=== PATIENT | male | born 1955 ===

== ENCOUNTER 2021-08-16 12:39 | Emergency (ER) | payer BC ==
[2021-08-16] MEDS ORDERED: IV FLUID CONTINUATION 1,000 ML IV ONE (12:48)
[2021-08-16] MEDS ORDERED: fentaNYL (PF) 50 MCG/ML 2 ML AMP ONE (12:57)
[2021-08-16] MEDS ORDERED: HEPARIN SODIUM 1,000 UN/ML (10ML VL) ONE (13:00)
[2021-08-16] MEDS ORDERED: LIDOCAINE 1% INJ 10MG/ML (5 ML VIAL-PF) SQ ONE (13:02)
[2021-08-16] MEDS ORDERED: fentaNYL (PF) 50 MCG/ML 2 ML AMP IV ONE (13:03)
[2021-08-16] MEDS ORDERED: MIDAZOLAM 2 MG/2 ML VIAL IV ONE (13:03)
--- NOTE | 2021-08-16 13:04 | P.CRDCN ---
History of Present Illness History of present illness: This is Dr. Joe dictating a consult on this patient The patient was interviewed and examined IMPRESSION / ASSESSMENT: Abnormal EKG with ST depression in the inferior leads, lateral precordial leads, ST elevation in aVR and V1 and V2 Recurrent chest discomfort yesterday, pain-free today Abnormal cardiac enzymes Type 2 diabetes for 7-8 years PLAN: Proceed with coronary angiography and intervention based on the results Admit to internal medicine HPI This is a 66-year-old male patient who was experiencing recurrent chest discomfort yesterday and so he came to the ER at [facility] His first EKG around 8:30 in the morning was abnormal His subsequent EKG was also abnormal It should ST elevation in aVR and V1 and V2 and ST depression in the precordial leads as well as the inferior leads Repeat EKG was performed which showed the exact same abnormalities First troponin was abnormal The second troponin was further abnormal Currently was called close to noon time after the troponins received I received a call from the nurse practitioner I the patient transferred over to [facility] directly to the Contract Management Specialist Patient Was Examined in the Contract Management Specialist ROS: No fever chills or rigors, no cough, phlegm or expectoration, no nausea, vomiting or diarrhea, no hematuria, dysuria, no musculoskeletal complaints, no strokes or seizures, no skin lesions. EXAMINATION: Resting comfortably in bed no orthopnea No JVD No lower extremity edema Normal heart sounds no murmurs Clear lungs to rhonchi no crackles REVIEW OF LABS, ECG & MEDICAL DATA Abnormal EKG Abnormal troponins Elevated glucose levels Bicarb 20 anion gap 13
[2021-08-16] MEDS ORDERED: VERAPAMIL SYRINGE (5 MG/10 ML) INTRAARTER ONE (13:06)
[2021-08-16] MEDS ORDERED: HEPARIN SODIUM 1,000 UN/ML (10ML VL) IV ONE (13:09)
[2021-08-16 13:32] LABS: Glucose,Whole Blood 385 mg/dL (70-110)
[2021-08-16] MEDS ORDERED: IOPAMIDOL-370 125ML BTL INJ ONE (13:37)
== END 2021-08-17 05:42 | disposition other institution (70) ==
LOC: EC 12:39
DX: I20.9 Angina pectoris, unspecified (principal); Z53.8 Procedure and treatment not carried out for other reasons
CPT/HCPCS: C1769; C1894

== ENCOUNTER 2021-08-16 13:42 | Inpatient (IN) | payer BC, MEDICARE ==
[~2021-08-16 13:42] MED LIST: HEPARIN SODIUM 1,000 UN/ML (10ML VL) IV ONE; IOPAMIDOL-370 125ML BTL INJ ONE; IV FLUID CONTINUATION 1,000 ML IV ONE; LIDOCAINE 1% INJ 10MG/ML (5 ML VIAL-PF) SQ ONE; MIDAZOLAM 2 MG/2 ML VIAL IV ONE; VERAPAMIL SYRINGE (5 MG/10 ML) INTRAARTER ONE; fentaNYL (PF) 50 MCG/ML 2 ML AMP IV ONE
[2021-08-16 14:54] LABS: HCT 41.5 % (39.0-53.0); MCH 30.4 pg (25.0-35.0); MCHC 33.6 g/dL (31.0-37.0); MCV 90.4 fL (80.0-100.0); Mean Platelet Volume 8.1; Platelet Count 157 k/uL (150-450); RDW 13.7 % (11.5-15.5); WBC 7.6 k/uL (3.8-10.6)
[2021-08-16 14:58] LABS: INR 1.8 (<1.2); Prothrombin Time 18.3 sec (9.0-12.0)
[2021-08-16] MEDS ORDERED: SODIUM CHLORIDE 0.9% 1,000 ML IV ONE (15:21)
[2021-08-16] MEDS ORDERED: NALOXONE 0.4 MG/ML 1 ML VIAL IV PRN (15:30)
[2021-08-16] MEDS ORDERED: bisacodyL 5 MG TABLET.DR PO PRN (15:31)
[2021-08-16] MEDS ORDERED: MELATONIN 3 MG TABLET PO PRN (15:31)
[2021-08-16] MEDS ORDERED: ACETAMINOPHEN TAB 325 MG TAB PO PRN (15:31)
[2021-08-16] MEDS ORDERED: ONDANSETRON 4 MG/2 ML VIAL IVP PRN (15:31)
--- NOTE | 2021-08-16 15:52 | P.HPIM ---
History of Present Illness H&P Date: 08/16/21 Chief Complaint: chest pain Patient is a 66-year-old male with known past medical history of diabetes mellitus type 2 on insulin and brittle, chronic diastolic congestive heart failure, hypertension, dyslipidemia, paroxysmal A. fib with sick sinus syndrome status post pacemaker, and GERD who was brought in via EMS to [facility] after being found at a gas station confused and with some chest pain. Initially on arrival there he was found to have some ST segment elevation and a code STEMI was activated. He also had a mildly elevated troponin. He was taken emergently from there to the flue dust laborer here where he underwent cardiac catheterization, there was no significant lesions found and patient did not require intervention. Laboratory analysis from [facility] was reviewed and patient had a significantly elevated blood sugar of greater than 700 with sodium of 125 on arrival. He had a CT of the head which demonstrated no acute hemorrh age or midline shift with mild diffuse ventricular and sulcal prominence and complete opacification of the right maxillary sinus. He was noted to be confused and lethargic after cardiac catheterization. We were asked to admit the patient for his metabolic derangements. Patient seen and examined at bedside and extended stay with daughter present. Patient works and lives in [place]. Apparently the patient was at his work shift last night and then the daughter received a phone call this morning that he was found in [place] from the [facility] police. She tells me that he has a history of brittle diabetes but his highest blood sugars are typically in the 200s now and he more often has low blood sugars and high blood sugars. He has no prior history of heart attack or stroke. She believes he was in his typical state of health until yesterday. She stated is very unusual for him to have driven the scar. Patient is lethargic but does awake to physical stimulation. He is able to tell me that he has in a hospital, that he came via EMS, that he was in his cardiac gas station prior. He is unable to tell me how he arrived at the gas station. He also is unable to recall the year. His speech does appear somewhat garbled. Initially daughter was worried that he had a little left-sided facial droop but she thinks it is maybe just dehydration at this point. Unable to complete a full review of systems secondary to patient's lethargy. Vital signs reviewed General: nontoxic, no distress, appears at stated age Derm: warm, dry Head: atraumatic, normocephalic, symmetric Eyes: EOMI, no lid lag, anicteric sclera, pupils equal round reactive to light ENT: Nose and ears atraumatic, no thrush, no pharyngeal erythema Neck: No thyromegaly, no cervical lymphadenopathy, trachea midline, supple Mouth: no lip lesion, mucus membranes dry Cardiovascular: S1S2 reg, no murmur, positive posterior tibial pulse bilateral, no edema, capillary refill less than 2 seconds Lungs: clear to auscultation bilateral, no rhonchi, no rales, no wheeze, no accessory muscle use Abdominal: soft, nontender to palpation, no guarding, no appreciable organomegaly, normal bowel sounds Ext: no gross muscle atrophy, muscle strength muscle strength 5 out of 5 in all 4 extremities, no contractures Neuro: CN II-XII grossly intact, light touch intact all 4 extremities Psych: Alert, oriented to person and being in a hospital but not year Assessment/Plan: Acute encephalopathy - concern is for metabolic encephalopthy vs stroke, vs seizure -Treatment of underlying metabolic drainage insulin-check stat ammonia level -Computed tomography scan from this morning was negative -Consult neurology- D/W Dr. Lama plan is for EEG and repeat CT in AM Type II WI - cardio recs - resume home medications Symptomatic hyperglycemia in an insulin-dependent diabetic Pseudohyponatremia, corrects to normal. -Recheck stat blood work -Rule out DKA with stat lytes and acetone - repeat stat lytes, ammonia Compensated diastolic congestive heart failure HTN HLD P A fib, SSS, s/p PPM -Last echo reported showed ejection fraction of 55-60% with mild concentric LVH - Appears that patient was taking aspirin 81 mg at home, atorvastatin, metoprolol will await home meds to be reviewed GERD - Awaiting home medications to be verified. Anticipated length of stay of less than 2 minutes for acute encephalopathy and hyperglycemia DVT prophylaxis: SCDs Discussed with: Patient, nursing Anticipated discharge: in 1-[address]: home A total of 75 minutes was spent on the care of this complex patient more than 50% of the time was spent in counseling and care coordination. Past Medical History Past Medical History: Atrial Fibrillation, Heart Failure, Diabetes Mellitus, Hyperlipidemia, Hypertension Additional Past Medical History / Comment(s): Refles sympathetic dystrophy, sick sinus syndrome, non-ischemic cardiomyopathy Past Surgical History: Pacemaker Additional Past Surgical History / Comment(s): Heart ablation, pacemaker inser tion and replacement Smoking Status: Unknown if ever smoked Past Alcohol Use History: Occasional Past Drug Use History: None Reported Additional History: Works in [employer] in [place]. - Past Family History Mother Family Medical History: Cancer Father Family Medical History: Cancer Brother(s) Family Medical History: Diabetes Mellitus Medications and Allergies Home Medications Medication Instructions Recorded Confirmed Type Atorvastatin Calcium [Lipitor] 40 mg PO DAILY 08/16/21 08/16/21 History Finasteride [Proscar] 5 mg PO DAILY 08/16/21 08/16/21 History Insulin Detemir [Levemir Flextouch 9 units SQ HS 08/16/21 08/16/21 History Pen] Insulin Detemir [Levemir Flextouch 26 units SQ DAILY 08/16/21 08/16/21 History Pen] Metoprolol Succinate (ER) [Toprol 25 mg PO BID 08/16/21 08/16/21 History Xl] Omeprazole 40 mg PO DAILY 08/16/21 08/16/21 History Propafenone HCl [Propafenone HCl 325 mg PO BID 08/16/21 08/16/21 History ER] Sertraline [Zoloft] 100 mg PO DAILY 08/16/21 08/16/21 History Tamsulosin [Flomax] 0.4 mg PO DAILY 08/16/21 08/16/21 History Warfarin [Coumadin] 4 mg PO DAILY 08/16/21 08/16/21 History Allergies Allergy/AdvReac Type Severity Reaction Status Date / Time No Known Allergies Allergy Verified 08/16/21 16:26 Physical Exam Osteopathic Statement: *. No significant issues noted on an osteopathic structural exam other than those noted in the History and Physical/Consult. Vitals: Vital Signs Pulse Resp BP Pulse Ox 08/16/21 13:51 68 16 159/74 99 Intake and Output 08/16/21 08/16/21 08/16/21 06:59 14:59 22:59 Intake Total 300 Balance 300 Intake: IV 300 Other: Weight 82.953 kg Results CBC & Chem 7: 08/16/21 14:44 08/16/21 16:13 Labs: Abnormal Lab Results - Last 24 Hours (Table) 08/16/21 Range/Units 14:44 PT 18.3 H (9.0-12.0) sec INR 1.8 H (<1.2)
[2021-08-16 15:53] LABS: ABG Base Excess -3.6 mmol/L; ABG HCO3 23 mmol/L (21-25); ABG Oxygen Saturation 93.4 % (94-97); ABG PCO2 45 mmHg (35-45); ABG PH 7.31 (7.35-7.45); ABG PO2 76 mmHg (83-108); ABG TCO2 24 mmol/L (19-24); Allen Test Performed? Yes
[2021-08-16 16:44] LABS: ALT 25 U/L (4-49); African American GFR (CKD) >90 (>60 ml/min/1.73 sqM); Albumin 3.6 g/dL (3.5-5.0); Anion Gap 8 mmol/L; Blood Urea Nitrogen 24 mg/dL (9-20); Calcium 8.4 mg/dL (8.4-10.2); Carbon Dioxide 22 mmol/L (22-30); Chloride 108 mmol/L (98-107); Glucose 375 mg/dL (74-99); Non-African American GFR(CKD) >90 (>60 ml/min/1.73 sqM); Phosphorus 3.4 mg/dL (2.5-4.5); Sodium 138 mmol/L (137-145); Total Bilirubin 0.7 mg/dL (0.2-1.3); Total Protein 5.9 g/dL (6.3-8.2)
[2021-08-16 16:46] LABS: AST 28 U/L (17-59); Alkaline Phosphatase 90 U/L (38-126); Magnesium 2.2 mg/dL (1.6-2.3); Potassium 4.3 mmol/L (3.5-5.1)
[2021-08-16 16:58] LABS: Glucose,Whole Blood 369 mg/dL (70-110)
--- NOTE | 2021-08-16 17:07 | P.CNNES ---
History of Present Illness Consult date: 08/16/21 Requesting physician: Omayra Martines Reason for Consult: concern for CVA History of Present Illness: This is a 66-year-old gentleman with history of atrial fibrillation on Coumadin, sick sinus syndrome s/p pacemaker, diabetes mellitus type 2 and is britlle, chronic diastolic heart failure, hypertension, dyslipidemia who was transferred transferred from [facility] for escalation of care for elevate troponin and concern initially for STEMI. Some of the history is obtained from the patient's primary attending. It seems that the patient was found at a gas station confused with some chest pain and was taken to [facility] and was found to have elevated troponin. His a initial blood sugar was >700s. It seems his baseline sugar runs in the 200s at home. Also was found that his sodium of 125. He had initial CT of the head at the outside facility which was reported as no acute hemorrhage or midline shift with mild diffuse ventricular and sulcal prominence and complete opacification of the right maxillary sinus. He was transferred to [facility] since there was a concern on EKG the patient has ST elevation ID and was transferred for cardiac cath. It seems that the patient had a cardiac cath in our facility. Seems his sugar in our facility was in the 300. In our facility patient underwent cardiac cath with no significant lesions found and the patient did not require intervention. It seems that the patient works and lives in [place] and works at night. Then it apparently the daughter received a call from state police that the patient was in [place]. Seems his sugars are not control at home and as stated earlier it's and usually 200 but can be lower. Patient does not have any history of stroke in the past. His daughter initially thought he had little left facial droop. It seems that his speech was somewhat garbled. Per the daughter he was in his typical state of health until likely yesterday and she felt was unusual for him to drive this far. Some other workup in our facility consisted of: Initial vital signs is a blood pressure of 159/74, heart rate of 68, respiratory of 16 and pulse ox of 99 at room air. CBC was unremarkable Ammonia level is less than 9 Review of Systems Review of system is limited but the prone positive and negative as per HPI. Past Medical History - Past Family History Mother Family Medical History: Cancer Father Family Medical History: Cancer Brother(s) Family Medical History: Diabetes Mellitus Medications and Allergies Home Medications Medication Instructions Recorded Confirmed Type Atorvastatin Calcium [Lipitor] 40 mg PO DAILY 08/16/21 08/16/21 History Finasteride [Proscar] 5 mg PO DAILY 08/16/21 08/16/21 History Insulin Detemir [Levemir Flextouch 9 units SQ HS 08/16/21 08/16/21 History Pen] Insulin Detemir [Levemir Flextouch 26 units SQ DAILY 08/16/21 08/16/21 History Pen] Metoprolol Succinate (ER) [Toprol 25 mg PO BID 08/16/21 08/16/21 History Xl] Omeprazole 40 mg PO DAILY 08/16/21 08/16/21 History Propafenone HCl [Propafenone HCl 325 mg PO BID 08/16/21 08/16/21 History ER] Sertraline [Zoloft] 100 mg PO DAILY 08/16/21 08/16/21 History Tamsulosin [Flomax] 0.4 mg PO DAILY 08/16/21 08/16/21 History Warfarin [Coumadin] 4 mg PO DAILY 08/16/21 08/16/21 History Allergies Allergy/AdvReac Type Severity Reaction Status Date / Time No Known Allergies Allergy Verified 08/16/21 16:26 Physical Examination - Vital Signs Vital Signs: Vital Signs Pulse Resp BP Pulse Ox 08/16/21 13:51 68 16 159/74 99 Intake and Output 08/16/21 08/16/21 08/16/21 06:59 14:59 22:59 Intake Total 300 Balance 300 Intake: IV 300 Other: Weight 82.953 kg GENERAL: The patient is lying in bed and is not in acute distress. HENT: Supple neck. CHEST: The heart rate is regular rate rhythm. No murmurs to auscultation. LUNG: Clear to auscultation bilaterally no wheezing noted throughout. Not labored breathing. ABDOMEN/GI: Bowel sounds present in all 4 quadrants. No tenderness to palpation throughout. NEUROLOGICAL: Higher mental function: The patient is drowsy but is awakeable to voice. Is oriented to self. He correctly stated he was in the hospital but did not know the name. Correctly stated the Month but did not respond to year. He correctly name objects (pen, watch, glasses). Patient is following simple commands. Does not appear to have aphasia and no neglect. Cranial nerves: The pupils are round, equal and reactive to light. Visual reynolds are full to confrontation throughout. Extraocular movement is intact no nystagmus is noted. Facial sensation is normal to touch throughout. The facial strength is normal throughout. Tongue is midline and moved [id number] without any difficulty. No dysarthria is noted. Shoulder shrug is normal bilaterally. Motor: The strength is 5 over 5 throughout. Normal tone and bulk. Has slight tremors of bilateral hands while resting but is aweakable and responsive during these episodes. Cerebellum: Not assess because of cooperation. Sensation: Sensation is normal to touch throughout. Reflexes (right/left): 2+ throughout. Plantars are mute bilaterally. Results - Laboratory Findings CBC and BMP: 08/16/21 14:44 08/16/21 16:13 Abnormal Lab Findings: Abnormal Labs 08/16/21 14:44 PT 18.3 H INR 1.8 H Assessment and Plan Assessment: Altered mental status seems due to metabolic encephalopathy (initial sugar were >700's at outside facility). Also rule out any underlying seizure or stroke. Patient had an initial CT of the head at outside facility which was unremarkable. Uncontrolled diabetes mellitus type 2 on insulin NSTEMI Atrial fibrillation on Coumadin Sick sinus syndrome s/p pacemaker Chronic diastolic heart failure, Dyslipidemia Plan: I ordered a repeat CT of the head tomorrow 8am. The patient had a CT of the head at outside facility which was unremarkable. Cannot pursue with MRI since the patient has a pacemaker Ordered an urgent EEG which will happen tomorrow Ordered carotid duplex, TSH, vitamin B12, folate. PT, OT and and EDITORIAL CLERK are consulted Continue neuro checks. Cardiology team is also on board We'll defer the rest of the medical management to primary team and nurse. The plan is discussed with the primary team. Thank you for the consultation. Reji Lama M.D. Neuro-hospitalist Time with Patient: Greater than 30
[2021-08-16] MEDS: INSULIN ASPART (NovoLOG) 100 UNIT/ML VIAL SQ SCH ×2 (17:26→20:26)
[2021-08-16] MEDS: SODIUM CHLORIDE 0.9% 1,000 ML IV SCH (18:03)
[2021-08-16] MEDS: METOPROLOL TARTRATE 25 MG TAB PO SCH (20:21)
[2021-08-16] MEDS: INSULIN DETEMIR (LEVEMIR) 100 UNIT/ML SYR SQ SCH ×2 (20:22→20:23)
[2021-08-16] MEDS: PROPAFENONE 225 MG TAB PO SCH (20:22)
[2021-08-16 20:25] LABS: Glucose,Whole Blood 283 mg/dL (70-110)
--- NOTE | 2021-08-16 22:10 | US ---
EXAMINATION TYPE: US carotid duplex BILAT DATE OF EXAM: 08/16/2021 COMPARISON: NONE CLINICAL HISTORY: stroke. patient sleeping, unable to answer questions, possible stroke EXAM MEASUREMENTS: RIGHT: Peak Systolic Velocity (PSV) cm/sec ----- Right CCA: 71.2 ----- Right ICA: 89.4 ----- Right ECA: 117.0 ICA/CCA ratio: 1.2 RIGHT: End Diastole cm/sec ----- Right CCA: 12.6 ----- Right ICA: 18.5 ----- Right ECA: 13.8 LEFT: Peak Systolic Velocity (PSV) cm/sec ----- Left CCA: 87.2 ----- Left ICA: 86.3 ----- Left ECA: 184 ICA/CCA ratio: 1.0 LEFT: End Diastole cm/sec ----- Left CCA: 14.3 ----- Left ICA: 17.4 ----- Left ECA: 10.7 VERTEBRALS (direction of flow): Right Vertebral: Antegrade Left Vertebral: Antegrade Rhythm: Normal Mild heterogeneous plaque at bilateral bulbs with no significant stenosis seen IMPRESSION: There is antegrade flow in the vertebral arteries. Minimal plaque formation at the carotid artery bif urcations. Images and measurement suggests less than 15% stenosis in both internal carotid arteries. Criteria for Assigning % of Stenosis / Diameter reduction (Estimation based on the indirect measurements of the internal carotid artery velocities (ICA PSV). 1. Normal (no stenosis)=ICA PSV < 125 cm/s: ratio < 2.0: ICA EDV<40 cm/s. 2. Less than 50% stenosis=ICA PSV < 125 cm/s: ratio < 2.0: ICA EDV<40 cm/s. 3. 50 to 69% stenosis=ICA PSV of 125 to 230 cm/s: ration 2.0 ? 4.0: ICA EDV 40-100 cm/s. 4. Greater than 70% stenosis to near occlusion= ICA PSV > 230 cm/s: ratio > 4.0: ICA EDV > 100 cm/s. 5. Near occlusion= ICA PSV velocities may be low or undetectable: variable ratio and ICA EDV. 6. Total occlusion=unable to detect flow.
--- NOTE | 2021-08-17 00:32 | P.CARDCATH ---
Date of Procedure: 08/16/21 Description of Procedure: PROCEDURES PERFORMED: Left heart catheterization, bilateral coronary angiography, left ventriculogram INDICATION: NSTEMI HPI: Patient is a pleasant 66 yo male who came to [facility] and was confused and found to have DKA. He also had abnormal EKG and NSTEMI with elevating troponins. He was not having active chest pain however had been complaining of prior chest pain and somewhat difficult to get full history secondary to confusion. Therefore, decision was made to transfer to [facility] for LHC and possibly PCI. PROCEDURE: After the risks, benefits and alternatives of the above mentioned procedure explained in detail with the patient, informed consent was obtained. Patient was taken to the catheterization lab and prepped and draped in usual fashion. 1% lidocaine was used to anesthetize the right radial artery. A 6- Nicaraguan sheath was placed in the right radial artery using modified Seldinger technique. RCA angiography was performed with a 5FR FR 5. Left coronary angiography was performed with a 5-Nicaraguan JL 3.5 catheter. A 5-Nicaraguan pigtail catheter was inserted into the left ventricle and pressure measurements were obtained. A right ventriculogram was performed in the MACDONALD projection with power injection. The right radial sheath was removed and a TR band was placed with hemostasis achieved. The patient tolerated the procedure well. Patient was transported back to the post catheterization holding area in stable condition. Conscious Sedation: Patient was monitored under the direct supervision of vision of myself for conscious sedation using Versed and fentanyl for a total duration of 25 minutes HEMODYNAMICS: Aortic: 113/69 LV: 98/3 LVEDP 7 SELECTIVE CORONARY ARTERIOGRAPHY: LEFT MAIN: The left main is a large caliber vessel which bifurcates into the LAD and circumflex. There is no significant stenosis. LEFT ANTERIOR DESCENDING CORONARY ARTERY: LAD is a large caliber vessel which wraps around to the apex. There is no significant stenosis. There is a very small caliber "high diagonal" 1 branch which is nearly a ramus however has no significant stenosis. LEFT CIRCUMFLEX CORONARY ARTERY: Left circumflex is a moderate caliber vessel with no significant stenosis. RIGHT CORONARY ARTERY: The right coronary artery is a large caliber vessel which gives off a PDA and PLV branch and is the dominant vessel. There is no significant stenosis. LV gram: EF 55% without wall motion abnormalities. No MR. FINAL IMPRESSION: 1. Normal coronary arteries as described above. 2. Low normal left sided filling pressures 3. Normal LV EF 55% PLAN: 1. Aggressive risk factor modification per most recent ACC/AHA guidelines. 2. IVF hydration and monitor neuro status.
[2021-08-17 03:33] LABS: Glucose,Whole Blood 163 mg/dL (70-110)
[2021-08-17 06:00] LABS: Glucose,Whole Blood 156 mg/dL (70-110)
[2021-08-17] MEDS: INSULIN ASPART (NovoLOG) 100 UNIT/ML VIAL SQ SCH ×2 (06:17→12:03)
--- NOTE | 2021-08-17 08:20 | CT ---
EXAMINATION TYPE: CT brain wo con DATE OF EXAM: 08/17/2021 COMPARISON: None HISTORY: 66-year-old male weakness, Altered mental status. Rule out stroke. TECHNIQUE: Examination was done in axial plane without intravenous contrast. Coronal and sagittal r econstructions performed. CT DLP: DLP 1126.5 mGycm Automated exposure control for dose reduction was used. FINDINGS: There is no evidence of acute intracranial hemorrhage, acute ischemic changes, mass effect, or extra -axial fluid collection. There is no effacement of cerebral sulci or basal subarachnoid cisterns. T here is no hydrocephalus. There is no midline shift. Kaur-white matter distinction is preserved. There is CSF fullness of the left cerebellopontine angle that may reflect an underlying arachnoid cys t measuring 3.1 x 1.6 cm. Mild generalized supratentorial volume loss. [id number] patchy white matter hypodensities in oriana th cerebral hemispheres and in the 7 similar region on both sides. Leftward nasal septal deviation. Complex opacification right maxillary sinus. Moderate mucosal thicke remi throughout the ethmoid air cells and left maxillary sinus. Mastoid air cells are well pneumatize d. Orbits and globes are intact. IMPRESSION: 1. Mild atrophy and mild to moderate patchy burden of chronic small vessel ischemic disease. No acute intracranial abnormality seen. If symptoms persist, consider MRI. 2. CSF density fullness in the region of the left CPA that may reflect an underlying 3.1 x 1.6 cm yamila chnoid cyst. No significant mass effect or midline shift. 3. Severe chronic right maxillary sinus disease. Moderate chronic sinus disease of the ethmoid air ce lls and left maxillary sinus. Consider outpatient ENT referral.
[2021-08-17] MEDS: SODIUM CHLORIDE 0.9% 1,000 ML IV SCH (08:53)
[2021-08-17] MEDS ORDERED: ATORVASTATIN 40 MG TAB PO SCH (09:00)
[2021-08-17] MEDS ORDERED: INSULIN DETEMIR (LEVEMIR) 100 UNIT/ML SYR SQ SCH ×2 (09:00→21:00)
[2021-08-17] MEDS ORDERED: PANTOPRAZOLE 40 MG TABLET PO SCH (09:00)
[2021-08-17] MEDS ORDERED: FINASTERIDE 5 MG TAB PO SCH (09:00)
[2021-08-17] MEDS ORDERED: SERTRALINE 100 MG TAB PO SCH (09:00)
[2021-08-17] MEDS ORDERED: WARFARIN 2 MG TAB PO SCH (09:00)
[2021-08-17] MEDS ORDERED: TAMSULOSIN 0.4 MG CAP.ER.24H PO SCH (09:00)
[2021-08-17] MEDS: METOPROLOL TARTRATE 25 MG TAB PO SCH (09:04)
[2021-08-17] MEDS: PROPAFENONE 225 MG TAB PO SCH (09:04)
[2021-08-17 09:17] LABS: HCT 40.9 % (39.0-53.0); HGB 13.5 gm/dL (13.0-17.5); MCH 29.9 pg (25.0-35.0); MCHC 33.1 g/dL (31.0-37.0); MCV 90.3 fL (80.0-100.0); Mean Platelet Volume 7.7; Platelet Count 161 k/uL (150-450); RBC 4.53 m/uL (4.30-5.90)
[2021-08-17 09:44] LABS: African American GFR (CKD) >90 (>60 ml/min/1.73 sqM); Anion Gap 5 mmol/L; Blood Urea Nitrogen 17 mg/dL (9-20); Calcium 8.5 mg/dL (8.4-10.2); Carbon Dioxide 25 mmol/L (22-30); Chloride 111 mmol/L (98-107); Glucose 112 mg/dL (74-99); Non-African American GFR(CKD) >90 (>60 ml/min/1.73 sqM); Phosphorus 2.5 mg/dL (2.5-4.5); Sodium 141 mmol/L (137-145)
[2021-08-17 10:09] LABS: INR 1.7 (<1.2); Prothrombin Time 17.5 sec (9.0-12.0)
[2021-08-17 11:35] VITALS: BP 143/75; PULSE 58; RESP 17; TEMP 98.5
[2021-08-17 11:38] LABS: Glucose,Whole Blood 183 mg/dL (70-110)
--- NOTE | 2021-08-17 12:58 | P.PN ---
Subjective This is a 66-year-old male with a past medical history of paroxysmal atrial fibrillation, chronic diastolic heart failure, hyperlipidemia, type 2 diabetes, sick sinus syndrome status post pacemaker implantation, GERD, hypertension, nonischemic cardiomyopathy. He follows with a fur sewer in [place]. Patient presented to [facility] and was confused and found in DKA. Apparently he drove all the way up from [place] confused. Cardiology was consulted there is secondary to abnormal EKG and and 70 with elevated troponins. Patient was not having any active chest pain however was complaining of prior chest pain and somewhat difficult to get full history patient was transferred to [facility] for left heart catheterization and possible PCI. Patient underwent procedure with Dr. Villalobos on 08/17/2021 which revealed Normal coronary arteries. Low normal left sided filling pressures and Normal LV EF 55%. 08/18/2021 Patient seen and examined at bedside, no acute distress. He denies any chest pain or shortness of breath. His mentation has improved. Blood pressure 143/75, heart rate 60, afebrile, saturation 98% room air. Repeat EKG reviewed this morning. GENERAL: Well-appearing, well-nourished and in no acute distress. NECK: Supple without JVD or thyromegaly. LUNGS: Breath sounds clear to auscultation bilaterally. Respiration equal and unlabored. No wheezes, rales or rhonchi. HEART: Regular rate and rhythm without murmurs, rubs or gallops. S1 and S2 heard. EXTREMITIES: Normal range of motion, no edema. No clubbing or cyanosis. Peripheral pulses intact. Right radial cath site, clean, dry, intact, no hematoma. ASSESSMENT Abnormal EKG with ST depression in inferior leads, lateral precordial leads, with ST elevation in aVR V1 and V2 with abnormal cardiac enzymes Normal coronary arteries by cardiac catheterization on 08/17/2021 History of atrial fibrillation on Coumadin Chronic diastolic heart failure Hyperlipidemia Type 2 diabetes History of Sick sinus syndrome status post pacemaker implantation GERD Hypertension History of Nonischemic cardiomyopathy,with improved EF PLAN Continue home cardiac medications Restart coumadin No further changes from cardiology perspective. Recommend close follow up with his fur sewer in [place]. Nurse Practitioner note has been reviewed, I agree with a documented findings and plan of care. Patient was seen and examined. Objective - Vital Signs Vital signs: Vital Signs Temp 98.5 F 08/17/21 11:32 Pulse 58 L 08/17/21 11:32 Resp 17 08/17/21 11:32 BP 143/75 08/17/21 11:32 Pulse Ox 98 08/17/21 11:32 FiO2 Intake & Output 08/16/21 08/17/21 08/17/21 18:59 06:59 18:59 Intake Total 875 Output Total 550 575 Balance 325 -575 Weight 82.953 kg 76.5 kg Intake: IV 300 Intake, IV Titration 325 Amount Sodium Chloride 0.9% 1, 325 000 ml @ 75 mls/hr IV . [id number] [facility] Rx#:[id number] Oral 250 Output: Urine 550 575 Other: Voiding Method Urinal Urinal Bedside Commode Urinal # Voids 1 1 # Bowel Movements 1 1 - Labs CBC & Chem 7: 08/17/21 08:39 08/17/21 08:39 Labs: Abnormal Lab Results - Last 24 Hours (Table) 08/16/21 08/16/21 08/16/21 Range/Units 14:44 15:47 16:13 PT 18.3 H (9.0-12.0) sec INR 1.8 H (<1.2) ABG pH 7.31 L (7.35-7.45) ABG pO2 76 L (83-108) mmHg ABG O2 Saturation 93.4 L (94-97) % Chloride 108 H (98-107) mmol/L BUN 24 H (9-20) mg/dL Glucose 375 H (74-99) mg/dL POC Glucose (mg/dL) (70-110) mg/dL Troponin I (0.000-0.034) ng/mL Total Protein 5.9 L (6.3-8.2) g/dL 08/16/21 08/16/21 08/16/21 Range/Units 16:13 16:56 20:23 PT (9.0-12.0) sec INR (<1.2) ABG pH (7.35-7.45) ABG pO2 (83-108) mmHg ABG O2 Saturation (94-97) % Chloride (98-107) mmol/L BUN (9-20) mg/dL Glucose (74-99) mg/dL POC Glucose (mg/dL) 369 H 283 H (70-110) mg/dL Troponin I 0.808 H* (0.000-0.034) ng/mL Total Protein (6.3-8.2) g/dL 08/17/21 08/17/21 08/17/21 Range/Units 03:29 05:56 08:39 PT (9.0-12.0) sec INR (<1.2) ABG pH (7.35-7.45) ABG pO2 (83-108) mmHg ABG O2 Saturation (94-97) % Chloride 111 H (98-107) mmol/L BUN (9-20) mg/dL Glucose 112 H (74-99) mg/dL POC Glucose (mg/dL) 163 H 156 H (70-110) mg/dL Troponin I (0.000-0.034) ng/mL Total Protein (6.3-8.2) g/dL 08/17/21 08/17/21 Range/Units 09:42 11:35 PT 17.5 H (9.0-12.0) sec INR 1.7 H (<1.2) ABG pH (7.35-7.45) ABG pO2 (83-108) mmHg ABG O2 Saturation (94-97) % Chloride (98-107) mmol/L BUN (9-20) mg/dL Glucose (74-99) mg/dL POC Glucose (mg/dL) 183 H (70-110) mg/dL Troponin I (0.000-0.034) ng/mL Total Protein (6.3-8.2) g/dL
[2021-08-17] MEDS ORDERED: WARFARIN 2 MG TAB PO ONE (13:45)
[2021-08-17 14:33] LABS: Glucose,Whole Blood 299 mg/dL (70-110)
--- NOTE | 2021-08-17 15:28 | EEG ---
ELECTROENCEPHALOGRAM REPORT DATE OF SERVICE: 08/16/2021 This is a 66-year-old gentleman with altered mental status. The video EEG is obtained to evaluate for seizure epileptiform activity. RELEVANT MEDICATION: The patient is not on any antiepileptic drugs. EEG TYPE: EEG type: Routine 21 channel EEG is performed with video using the 10/20 electrode placement system. DESCRIPTION: Wakefulness is obtained. During awake state, the posterior-dominant rhythm consists of low to moderate voltage of 8-9 hertz activity. There is no physiological sleep architecture seen. There is no focal slowing. Photic stimulation did evoke a posterior driving response at few flash frequencies. There is no abnormality during the photic stimulation. Hyperventilation is not performed. CLINICAL INTERPRETATION: This is a normal routine EEG. There is no focal slowing, epileptiform discharges or seizure on the EEG. Clinical correlation is recommended. ARIS / KIP: [id number] / MTDD
--- NOTE | 2021-08-17 18:00 | P.PN ---
Subjective Progress Note Date: 08/17/21 The patient is seen at bedside and is accompanied by daughter who feels he is back to baseline. Objective - Vital Signs Vital signs: Vital Signs Temp 98.0 F 08/17/21 09:03 Pulse 80 08/17/21 09:03 Resp 18 08/17/21 09:03 BP 173/81 08/17/21 09:03 Pulse Ox 97 08/17/21 09:03 FiO2 Intake & Output 08/16/21 08/17/21 08/17/21 18:59 06:59 18:59 Intake Total 875 Output Total 550 575 Balance 325 -575 Weight 82.953 kg 76.5 kg Intake: IV 300 Intake, IV Titration 325 Amount Sodium Chloride 0.9% 1, 325 000 ml @ 75 mls/hr IV . [id number] Rx#:[id number] Oral 250 Output: Urine 550 575 Other: Voiding Method Urinal Urinal Bedside Commode Urinal # Voids 1 1 # Bowel Movements 1 1 - Exam GENERAL: The patient is sitting in a recliner chair and not in acute distress. NEUROLOGICAL: Higher mental function: The patient is awake, alert, oriented to self and place but not time (baseline per daughter). Patient is following simple commands. No aphasia and no neglect. Cranial nerves: The pupils are round, equal and reactive to light. Visual reynolds are full to confrontation throughout. Extraocular movement is intact no nystagmus is noted. Facial sensation is normal to touch throughout. The facial strength is normal throughout. Tongue is midline and moved [id number] without any difficulty. No dysarthria is noted. Shoulder shrug is normal bilaterally. Motor: The strength is 5 over 5 throughout. Normal tone and bulk. Has slight tremors of bilateral hands while resting but is aweakable and responsive during these episodes. Cerebellum: Not assess because of cooperation. Sensation: Sensation is normal to touch throughout. Reflexes (right/left): 2+ throughout. Plantars are mute bilaterally. Some other workup in our facility consisted of: Vitamin B12 is 622 Folate is 12.4. TSH is 0.489 Acetone is positive Repeat CT of the head in our facility is reported as mild atrophy and mild to moderate patchy burden of chronic small vessel ischemia. No acute intracranial abnormality seen. CSF density fullness in the region of the left CPA may reflect underlying 3.1 x 1.6 cm arachnoid cyst. No significant mass effect or midline shift. Severe chronic right maxillary sinus disease. Moderate chronic sinus disease of the ethmoid air cells and left basilar sinus. - Labs CBC & Chem 7: 08/17/21 08:39 08/17/21 08:39 Labs: Abnormal Lab Results - Last 24 Hours (Table) 08/16/21 08/16/21 08/16/21 Range/Units 14:44 15:47 16:13 PT 18.3 H (9.0-12.0) sec INR 1.8 H (<1.2) ABG pH 7.31 L (7.35-7.45) ABG pO2 76 L (83-108) mmHg ABG O2 Saturation 93.4 L (94-97) % Chloride 108 H (98-107) mmol/L BUN 24 H (9-20) mg/dL Glucose 375 H (74-99) mg/dL POC Glucose (mg/dL) (70-110) mg/dL Troponin I (0.000-0.034) ng/mL Total Protein 5.9 L (6.3-8.2) g/dL 08/16/21 08/16/21 08/16/21 Range/Units 16:13 16:56 20:23 PT (9.0-12.0) sec INR (<1.2) ABG pH (7.35-7.45) ABG pO2 (83-108) mmHg ABG O2 Saturation (94-97) % Chloride (98-107) mmol/L BUN (9-20) mg/dL Glucose (74-99) mg/dL POC Glucose (mg/dL) 369 H 283 H (70-110) mg/dL Troponin I 0.808 H* (0.000-0.034) ng/mL Total Protein (6.3-8.2) g/dL 08/17/21 08/17/21 08/17/21 Range/Units 03:29 05:56 08:39 PT (9.0-12.0) sec INR (<1.2) ABG pH (7.35-7.45) ABG pO2 (83-108) mmHg ABG O2 Saturation (94-97) % Chloride 111 H (98-107) mmol/L BUN (9-20) mg/dL Glucose 112 H (74-99) mg/dL POC Glucose (mg/dL) 163 H 156 H (70-110) mg/dL Troponin I (0.000-0.034) ng/mL Total Protein (6.3-8.2) g/dL 08/17/21 Range/Units 09:42 PT 17.5 H (9.0-12.0) sec INR 1.7 H (<1.2) ABG pH (7.35-7.45) ABG pO2 (83-108) mmHg ABG O2 Saturation (94-97) % Chloride (98-107) mmol/L BUN (9-20) mg/dL Glucose (74-99) mg/dL POC Glucose (mg/dL) (70-110) mg/dL Troponin I (0.000-0.034) ng/mL Total Protein (6.3-8.2) g/dL Assessment and Plan Assessment: Altered mental status seems due to metabolic encephalopathy (initial sugar were >700's at outside facility). Less likely stroke or seizure at this time. Repeat CT head is negative for stroke--mentation improved Uncontrolled diabetes mellitus type 2 on insulin NSTEMI Atrial fibrillation on Coumadin Sick sinus syndrome s/p pacemaker Chronic diastolic heart failure, Dyslipidemia Plan: Recommend consideration of MRI of the brain with and without as an outpatient if the patient has any further episode of confusion that as a pacemaker compatible Pending EEG. PT, OT and and PILLAR WORKER are consulted Continue neuro checks. Regarding the patient's resting tremor: One of the differential is Parkinson's disease. The daughter will have the patient to follow-up with a neurologist as an outpatient if he continues to have these tremors for further investigation/management. Cardiology team is also on board We'll defer the rest of the medical management to primary team and nurse. The plan is discussed with the patient's daughter and primary team. Reji Lama M.D. Neuro-hospitalist Time with Patient: Less than 30
--- NOTE | 2021-08-17 19:27 | P.DS ---
Providers Date of admission: 08/16/21 13:52 Expected date of discharge: 08/17/21 Attending physician: Omayra Martines, Consults: 08/16/21 15:34 Consult Physician Routine Consulting Provider: Krish Villalobos Consult Reason/Comments: NSTEMI Do you want consulting provider notified?: Already Contacted 08/16/21 15:35 Consult Physician Routine Consulting Provider: Reji Lama Consult Reason/Comments: altered mentation, concern for CVA Do you want consulting provider notified?: Yes Primary care physician: Stated None Hospital Course: Discharge Diagnosis: Acute metabolic encephalopathy Type II NV Symptomatic hyperglycemia in an insulin-dependent diabetic Pseudohyponatremia, corrects to normal Right maxillary sinus opacification Resting tremor Compensated diastolic congestive heart failure HTN HLD P A fib, SSS, s/p PPM GERD Hospital Course: Patient is a 66-year-old male with known past medical history of diabetes mellitus type 2 on insulin and brittle, chronic diastolic congestive heart failure, hypertension, dyslipidemia, paroxysmal A. fib with sick sinus syndrome status post pacemaker, and GERD who was brought in via EMS to [facility] [place] station confused and with some chest pain. Initially on arrival there he was found to have some ST segment elevation and a code STEMI was activated. He also had a mildly elevated troponin. He was taken emergently from there to the cath lab radiology technician here where he underwent cardiac catheterization, there was no significant lesions found and patient did not require intervention. Laboratory analysis from [facility] was reviewed and patient had a significantly elevated blood sugar of greater than 700 with sodium of 125 on arrival. He had a CT of the head which demonstrated no acute hemorrhage or midline shift with mild diffuse ventricular and sulcal prominence and complete opacification of the right maxillary sinus. He was noted to be confused and lethargic after cardiac catheterization. We were asked to admit the patient for his metabolic derangements. He was monitored overnight. He did have positive acetone though no anion gap. It was determined he likely had mild DKA on presentation to [facility]. He had a repeat head CT obtained the day after admission as he was unable to have an MRI. This did show complete dictation of the right maxillary sinus with referral to ENT suggested. Patient was back to his baseline mentation per daughter. He was seen by neurology. He underwent an EEG which did not demonstrate any epileptiform activity. He was determined stable for discharge as his blood sugars were in the 150s. Follow-up: He'll follow-up with his primary care physician next week, he will find a neurologist to further evaluate his resting tremor as neurology is concerned it may be early Parkinson's, he will also follow-up with ENT. No medication changes were made at this point in time. He is going to go home and stay with his ex- for closer monitoring. Patient seen and examined at bedside. Has no complaints. Doing well. Vital signs reviewed and stable. General: nontoxic, no distress, appears at stated age Derm: warm, dry Head: atraumatic, normocephalic, symmetric Eyes: EOMI, no lid lag, anicteric sclera Mouth: no lip lesion, mucus membranes moist Cardiovascular: S1S2 reg, no murmur, positive posterior tibial pulse bilateral, Lungs: CTA bilateral, no rhonchi, no rales , no accessory muscle use Abdominal: soft, nontender to palpation, no guarding, no appreciable organomegaly Ext: no gross muscle atrophy, no edema, no contractures Neuro: CN II-XI grossly intact, no focal neuro deficits Psych: Alert, oriented, appropriate affect A total of 55 minutes of time were spent preparing this complex discharge summary. Patient was discharged on 08/17/21. Patient Condition at Discharge: Stable Plan - Discharge Summary Discharge Rx Participant: No New Discharge Prescriptions: Continue Warfarin [Coumadin] 4 mg PO DAILY Sertraline [Zoloft] 100 mg PO DAILY Propafenone HCl [Propafenone HCl ER] 325 mg PO BID Metoprolol Succinate (ER) [Toprol XL] 25 mg PO BID Insulin Detemir [Levemir Flextouch Pen] 26 units SQ DAILY Insulin Detemir [Levemir Flextouch Pen] 9 units SQ HS Finasteride [Proscar] 5 mg PO DAILY Tamsulosin [Flomax] 0.4 mg PO DAILY Omeprazole 40 mg PO DAILY Atorvastatin Calcium [Lipitor] 40 mg PO DAILY Discharge Medication List Atorvastatin Calcium [Lipitor] 40 mg PO DAILY 08/16/21 [History] Finasteride [Proscar] 5 mg PO DAILY 08/16/21 [History] Insulin Detemir [Levemir Flextouch Pen] 9 units SQ HS 08/16/21 [History] Insulin Detemir [Levemir Flextouch Pen] 26 units SQ DAILY 08/16/21 [History] Metoprolol Succinate (ER) [Toprol XL] 25 mg PO BID 08/16/21 [History] Omeprazole 40 mg PO DAILY 08/16/21 [History] Propafenone HCl [Propafenone HCl ER] 325 mg PO BID 08/16/21 [History] Sertraline [Zoloft] 100 mg PO DAILY 08/16/21 [History] Tamsulosin [Flomax] 0.4 mg PO DAILY 08/16/21 [History] Warfarin [Coumadin] 4 mg PO DAILY 08/16/21 [History] Patient Instructions/Handouts: After Radial Heart Catheterization (GEN) Activity/Diet/Wound Care/Special Instructions: Activity: As tolerated Diet: Heart healthy, carb consistent Special Instructions: You do have an opacified right maxillary sinus. We suggest he follow up with an shrimp peeling machine operator (ENT specialist) closer to home He was noted to have a hand tremor. There is concern that could be early Par kinson's disease. Neurology has reviewed her EEG no signs of seizure activity. They have suggested outpatient neurology follow-up as well as MRI. Should you have any recurrent confusional episodes such as when he was hospitalized for a prolonged EEG may be in order. Thank you for trusting us with her care. We wish you well and urine turning to better health. Please remain off of work through 08/26. Discharge/Stand Alone Forms: Work/School Release / Restrict Discharge Disposition: HOME SELF-CARE
[2021-08-18] MEDS ORDERED: INSULIN DETEMIR (LEVEMIR) 100 UNIT/ML SYR SQ SCH (07:00)
== END 2021-08-17 15:01 | disposition home or self-care (01) | DRG 637 ==
LOC: 3SCARD 13:52
PROVIDERS: ADMIT Internal Medicine; ATTEND Internal Medicine
PROC: B2111ZZ Fluoroscopy of Multiple Coronary Arteries using Low Osmolar Contrast (ICD-10-PCS; 2021-08-16)
PROC: B2151ZZ Fluoroscopy of Left Heart using Low Osmolar Contrast (ICD-10-PCS; 2021-08-16)
PROC: 4A10X4Z Monitoring of Central Nervous Electrical Activity, External Approach (ICD-10-PCS; 2021-08-16)
PROC: 4A023N7 Measurement of Cardiac Sampling and Pressure, Left Heart, Percutaneous Approach (ICD-10-PCS; principal; 2021-08-16 14:10)
DX: E11.10 Type 2 diabetes mellitus with ketoacidosis without coma (principal); G93.41 Metabolic encephalopathy; I21.A1 Myocardial infarction type 2; G90.50 Complex regional pain syndrome I, unspecified; I42.8 Other cardiomyopathies; I50.32 Chronic diastolic (congestive) heart failure; I11.0 Hypertensive heart disease with heart failure; I48.0 Paroxysmal atrial fibrillation; E78.5 Hyperlipidemia, unspecified; I49.5 Sick sinus syndrome; K21.9 Gastro-esophageal reflux disease without esophagitis; Z79.01 Long term (current) use of anticoagulants; Z79.4 Long term (current) use of insulin; Z79.899 Other long term (current) drug therapy; Z83.3 Family history of diabetes mellitus; Z95.0 Presence of cardiac pacemaker
CPT/HCPCS: 36600; 70450; 80048; 80053; 82009; 82140; 82607; 82746; 82805; 83735; 84100; 84443; 84484; 85027; 85610; 93458; 93880; 95816